=== PATIENT | female | born 1980 | race Caucasian/White ===

== ENCOUNTER → 2016-10-22 | Outpatient (CLI) | payer BC | END | disposition home or self-care (01) | LOC: RAD 14:08 | PROC: 0UJ87ZZ Inspection of Fallopian Tube, Via Natural or Artificial Opening (ICD-10-PCS; principal; 2016-10-22) | PROC: 0UJD7ZZ Inspection of Uterus and Cervix, Via Natural or Artificial Opening (ICD-10-PCS; principal; 2016-10-22) | PROC: BU18YZZ Fluoroscopy of Uterus and Fallopian Tubes using Other Contrast (ICD-10-PCS; principal; 2016-10-22) | DX: Z31.41 Encounter for fertility testing (principal) | CPT/HCPCS: 74740 ==